=== PATIENT | female | born 1990 | race Caucasian/White ===

== ENCOUNTER 2019-02-05 14:44 | Inpatient (IN) | payer BC ==
[2019-02-05 15:42] VITALS: BMI 26.4
--- NOTE | 2019-02-05 16:19 | OBHP ---
Datetime: 02/05/2019 15:40 Admit Comment, IP Provider: 28 y/o @ 38.4 wks w/NAEEM 02/15/2019 presenting for induction of la bor due to Poor biometry (4th % based on ultrasound performed yesterday). She denied any compl ications in this . She endorses+ FM. She denies vb, fluid loss, ctx. OBGYNhx: hx of termination of PMH: denies Meds: PNV, iron Allergies: topical bacitracin- rash Surghx: nasal polyp remova Sochx: denies etOH, cigarette or elicit drug use ROS: 12 points reviewed and are neg unless otherwise mentioned in HPI PE: Cardio: s1s2 RRR Lungs: cta b/l Abd: gravid, soft, nontender, no rigidity, no guarding Pelvic: 1, 40%, -3 Ext: calves nontender, nonedematous A/P: 28 y/o , clinically stable, @ 38.4 wks w/NAEEM 02/15/2019 presenting for induction of lab or due to biometry @ 4th%. -Admit to unit -Initiate induction protocol -Continue FHR monitoring -Patient seen and examined with Dr. Maria Eugenia Mackey, PGY-1. Attending: Patient was seen and examned with resident and I agree with the above. wally Del Cid Extremities - PN: Normal Abdomen - PN: Normal Lungs - PN: Normal Heart - PN: Normal General - PN: Normal Presentation-Admit: Vertex FHR - Baseline A Provider: 130s Membranes, Provider: Intact Contraction Comments Provider: irregular Gestation - Est Wks by US: 38.5 Pool Provider: Negative Vital Signs Provider: Reviewed; Within Normal Limits IP Indication for Induction: IUGR IP Chief Complaint: Maternal discomfort NICHD Variability Prov Fetus A: Moderate 6-25bpm NICHD Accel Fetus A IP Provider: [id number] FHR Category Provider Fetus A: Category I NICHD Decel Fetus A IP Provider: None Dilatation, Provider: 1 Effacement, Provider: 40 Station, Provider: -3
[2019-02-05 17:01] LABS: BASO % 0.3 % (0.0-2.0); EOS # 0.1 K/uL (0.0-0.7); EOS % 0.6 % (0.0-4.0); HEMOGLOBIN 10.8 g/dL (12.0-16.0); LYMPH % 11.5 % (20.0-40.0); MEAN CELL VOLUME 91.5 fl (81.0-99.0); MEAN CORPUSCULAR HEMOGLOBIN 30.5 pg (27.0-31.0); MEAN CORPUSCULAR HGB CONC 33.3 g/dL (33.0-37.0); MEAN PLATELET VOLUME 9.7 fl (7.2-11.7); MONO # 0.9 K/uL (0.0-0.8); MONO % 10.2 % (0.0-10.0); NEUT # 6.8 K/uL (1.8-7.0); NEUT % 77.4 % (50.0-75.0); NRBC % 0.1 % (0.0-0.0); RBC 3.55 Mil/uL (3.80-5.20); RED CELL DISTRIBUTION WIDTH 14.6 % (11.5-14.5); WHITE BLOOD COUNT 8.8 K/uL (4.8-10.8)
[2019-02-05] MEDS ORDERED: Fentanyl/Bupivacaine HCl 250 ML EPI ONE (19:11)
--- NOTE | 2019-02-05 21:18 | OBPN ---
Datetime: 02/05/2019 15:40 Pool Provider: Negative Membranes, Provider: Intact Contraction Comments Provider: irregular FHR - Baseline A Provider: 130s Gestation - Est Wks by US: 38.5 Presentation-Admit: Vertex IP Progress Note Comment: Patient reports intermittent pelvic cramps. Pain manageable O: afebrile Heart: RRR Chest: CTA B/L Abd: Soft, NT FHR- Category 1 TOCO: Ctx; irregular SVE: Deferred; cervidil placed at 5:50pm Assessment: Intrauterine at 38wks Being induced for IUGR Reassuring Maternal status Plan: Continue to monitor the progress of labor. Vital Signs Provider: Reviewed; Within Normal Limits NICHD Accel Fetus A IP Provider: [id number] FHR Category Provider Fetus A: Category I NICHD Variability Prov Fetus A: Moderate 6-25bpm Dilatation, Provider: 1 Effacement, Provider: 40 Station, Provider: -3 NICHD Decel Fetus A IP Provider: None
--- NOTE | 2019-02-06 09:35 | OBPN ---
Datetime: 02/06/2019 09:27 IP Progress Impression: Non-reassuring heart rate IP Procedures: Sterile Vag Exam IP Progress Plan: Continue present management; Induction; Cervical Ripening FHR - Baseline A Provider: 140s Gestation - Est Wks by US: 38.5 Presentation-Admit: Vertex IP Progress Note Comment: Patient reports feeling some intermittent pelvic cramps. Denies any vaginal bleeding. O : Afebrile Heart: RRR Chest: CTA B/l Abd: Soft, Nt, BS- present FHR- Category 1 Lamoure; irregular Assessment: Intrautrinr at 38w5d IUGR Being induced for IUGR S/P Cervidil for cervical ripening, removed at 5:50am Reassurnig Maternal status. Plan: Will switch on to cytotec for cervicaal ripening. Would consider folley balloon for cervical ripen ing if no response to cytotec. Plan was discussed with the patient and all her questions were answered. NICHD Accel Fetus A IP Provider: [id number] FHR Category Provider Fetus A: Category I NICHD Variability Prov Fetus A: Moderate 6-25bpm Dilatation, Provider: 1 Effacement, Provider: 50 Station, Provider: -3 NICHD Decel Fetus A IP Provider: None
[2019-02-06] MEDS ORDERED: Nalbuphine HCL 10 mg/ml Ampule IM ONE (15:20)
[2019-02-06] MEDS ORDERED: Oxytocin 30 UNIT in NS 500 ml 30 UNITS/500 ML BAG IV ONE ×2 (15:21→18:45)
[2019-02-06] MEDS ORDERED: OXYTOCIN/0.9 % NS 20 UNIT/1,000 ML BAG IV SCH (18:45)
[2019-02-06] MEDS: Lactated Ringer's 1,000 ML IV SCH (18:45)
[2019-02-07] MEDS: Lactated Ringer's 1,000 ML IV SCH ×5 (00:15→06:45)
[2019-02-07] MEDS ORDERED: Fentanyl/Bupivacaine HCl 250 ML EPI ONE (00:42)
--- NOTE | 2019-02-07 00:42 | OBPN ---
Datetime: 02/07/2019 00:33 IP Procedures Other: Removal of cook cervical balloon IP Progress Impression Other: Maternal discomfort IP Progress Impression: Normal progression of labor; Reassuring heart rate IP Informed Consent Obtain: Vaginal Delivery IP Procedures: Sterile Vag Exam IP Progress Plan: Continue present management; Anesthesia consult; Anticipate Vaginal Delivery Membranes, Provider: Intact Contraction Comments Provider: Q 2-3 FHR - Baseline A Provider: 130 Gestation - Est Wks by US: 38.6 Presentation-Admit: Vertex IP Progress Note Comment: Patient reported that she was having some painful pelvic pressure Denies any vaginal bleeding or leakage of fluid FHR- category 1 TOCO; Q 2-3 SVE: Balloon out of the cervix, Balloons deflated and removed Cx: /-3 Assessment: IUP at 38weeks IUGR being induced S/p cervidil, cytotec and Cook balloon for cervical ripening Reassuring maternal status Plan: Continue with Pitocin for augmentation of labor May have epidural Monitor closely the progress of labor. Vital Signs Provider: Reviewed NICHD Accel Fetus A IP Provider: [id number] FHR Category Provider Fetus A: Category I NICHD Variability Prov Fetus A: Moderate 6-25bpm Dilatation, Provider: 4 Effacement, Provider: 50 Station, Provider: -3 NICHD Decel Fetus A IP Provider: None
--- NOTE | 2019-02-07 07:20 | OBPN ---
Datetime: 02/07/2019 07:03 IP Progress Impression: Rupture of membranes IP Procedures: Sterile Vag Exam IP Progress Plan: Continue present management Membranes, Provider: Ruptured Amniotic Fluid Color, Provider: Clear Contraction Comments Provider: Q 4-5 FHR - Baseline A Provider: 130 Gestation - Est Wks by US: 38.6 Presentation-Admit: Vertex IP Progress Note Comment: Patient is s/p epidural and is comfortable. FHR at 130s with episodes of early decelerations and vaiables TOCO: Q 4-5 SVE: 5-6/90/-3, Vertex Assessment: IUP at 38weeks in labor Category 2 tracing Plan: Will stop Pitocin for now Resuscitation with positioning Monitor the progress of labor. Vital Signs Provider: Reviewed NICHD Accel Fetus A IP Provider: [id number] FHR Category Provider Fetus A: Category II NICHD Variability Prov Fetus A: Moderate 6-25bpm Dilatation, Provider: 5-6 Effacement, Provider: 90 Station, Provider: -3 NICHD Decel Fetus A IP Provider: Early; Variable
[2019-02-07] MEDS: Lactated Ringer's 1,000 ML IV ONE ×2 (09:15→11:30)
--- NOTE | 2019-02-07 09:40 | OBPN ---
Datetime: 02/06/2019 20:25 IP Progress Impression: Reactive non-stress test IP Procedures: Sterile Vag Exam IP Progress Plan: Continue present management; Augmentation FHR - Baseline A Provider: 120 IP Progress Note Comment: Patient reports feeling pelvic contractions. She is status post COOk balloon placement with pitocin for cervical ripening. Plan: Will continue to monitor the progress of labor. Vital Signs Provider: Reviewed; Within Normal Limits NICHD Accel Fetus A IP Provider: [id number] FHR Category Provider Fetus A: Category I NICHD Decel Fetus A IP Provider: None
--- NOTE | 2019-02-07 09:40 | OBADHP ---
Datetime: 02/05/2019 15:40 Admit Comment, IP Provider: 28 y/o @ 38.4 wks w/NAEEM 02/15/2019 presenting for induction of la bor due to Poor biometry (4th % based on ultrasound performed yesterday). She denied any compl ications in this . She endorses+ FM. She denies vb, fluid loss, ctx. OBGYNhx: hx of termination of PMH: denies Meds: PNV, iron Allergies: topical bacitracin- rash Surghx: nasal polyp remova Sochx: denies etOH, cigarette or elicit drug use ROS: 12 points reviewed and are neg unless otherwise mentioned in HPI PE: Cardio: s1s2 RRR Lungs: cta b/l Abd: gravid, soft, nontender, no rigidity, no guarding Pelvic: 1, 40%, -3 Ext: calves nontender, nonedematous A/P: 28 y/o , clinically stable, @ 38.4 wks w/NAEEM 02/15/2019 presenting for induction of lab or due to biometry @ 4th%. -Admit to unit -Initiate induction protocol -Continue FHR monitoring -Patient seen and examined with Dr. Maria Eugenia Mackey, PGY-1. Attending: Patient was seen and examned with resident and I agree with the above. wally Del Cid Extremities - PN: Normal Abdomen - PN: Normal Lungs - PN: Normal Heart - PN: Normal General - PN: Normal Presentation-Admit: Vertex FHR - Baseline A Provider: 130s Membranes, Provider: Intact Contraction Comments Provider: irregular Gestation - Est Wks by US: 38.5 Pool Provider: Negative Vital Signs Provider: Reviewed; Within Normal Limits IP Chief Complaint: Maternal discomfort NICHD Variability Prov Fetus A: Moderate 6-25bpm NICHD Accel Fetus A IP Provider: [id number] FHR Category Provider Fetus A: Category I NICHD Decel Fetus A IP Provider: None Dilatation, Provider: 1 Effacement, Provider: 40 Station, Provider: -3 IP Adm Impression: Term, intrauterine ; No Active Labor IP Admit Plan: Admit to unit; Initiate labor induction protocol
[2019-02-07] MEDS ORDERED: Lactated Ringer's 1,000 ML IV ONE ×2 (10:00→10:15)
[2019-02-07] MEDS ORDERED: Oxytocin 30 UNIT in NS 500 ml 30 UNITS/500 ML BAG IV ONE ×3 (10:47→11:30)
[2019-02-07] MEDS ORDERED: ceFAZolin 1 GM in Sodium Chloride 0.9% 100 ML IVPB ONE (11:19)
[2019-02-07] MEDS ORDERED: Lactated Ringer's 1,000 ML IV SCH (11:34)
--- NOTE | 2019-02-07 12:14 | OBPN ---
Datetime: 02/07/2019 11:15 IP Progress Impression: Non-reassuring heart rate IP Informed Consent Obtain: Section Delivery; Risks, Benefits and Alternatives Discussed IP Procedures: Sterile Vag Exam IP Progress Plan: Induction Membranes, Provider: Ruptured Amniotic Fluid Color, Provider: Clear FHR - Baseline A Provider: 120's IP Progress Note Comment: 28 yo at 38+6 wks for induction for growth restriction Recurrent variable decelerations, last deceleration lasting about 2 minutes Pt has been consented for section Will start pitocin to see if pt can progress to complete Will continue the amnioinfusion and watch the heart rate closely FHR Category Provider Fetus A: Category II NICHD Variability Prov Fetus A: Moderate 6-25bpm Dilatation, Provider: 8 Station, Provider: -1 NICHD Decel Fetus A IP Provider: Variable
[2019-02-07] MEDS ORDERED: Bupivacaine HCl 0.5% PF (30 ml) Inj ONE (12:58)
[2019-02-07] MEDS ORDERED: OXYTOCIN/0.9 % NS 20 UNIT/1,000 ML BAG IV ONE (14:41)
--- NOTE | 2019-02-07 16:05 | OBDS ---
MATERNAL INFORMATION Provider Comments: Pt progressed to complete and pushed to deliver a viable male infant at 1521 thro ugh clear fluid w/ terminal meconium. Loose nuchal cord easily reduced. Apgars 9 and 9. Infant plac ed on mother's abdomen. Delayed cord clamping was performed. Cord doubly clamped and FOB cut the co rd. Placenta delivered spontaneously intact w/ a 3vc at 1526. Perineum and vagina intact. Pt and javy baltazar tolerated the procedure well. QBL: 100mL LABOR SUMMARY EDC: 02/15/2019 00:00 No. Babies in Womb: 1 LABOR INFORMATION Onset of Labor: not in labor. pt admitted to labor and delivery for IOL IUGR Cervical Ripening Agents: Ramos Balloon Other Ripening Agents: cervical ripening balloon removed and intact by Dr Maria Eugenia Banks B Beta Strep: Negative (Annotations: result date: 01/23/2019) MEMBRANES Membranes Rupture Method: Spontaneous Rupture of Membranes: 02/07/2019 03:53 Amniotic Fluid Color: Clear Amniotic Fluid Amount: Small Amniotic Fluid Odor: Normal
[2019-02-07] MEDS ORDERED: Oxycodone/Acetaminophen 5/325 mg Tab PO PRN ×2 (16:12→21:03)
[2019-02-07] MEDS ORDERED: Benzocaine/Menthol SPRAY TOP PRN (16:12)
[2019-02-07] MEDS ORDERED: Sodium Chloride 3% for Inhalation 4 ML VIAL.NEB IH SCH (19:15)
--- NOTE | 2019-02-07 19:58 | CP.PCM.CON ---
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 Pt complains of dyspnea, post- nasal drip and non-productive cough that began 2 days ago. Pt was admitted to L&D for induction of labor 2 days ago. After vaginal delivery 3 hours ago, pt reported aggravatation of SOB and cough, O2 sat measured and was within 88-92% range. Pt also c/o mild sternal chest pain that is reproducible on palpation and worse with inspiration; she also reports feeling a lot of mucus on her throat now. Pt reports a long Hx of sinusitis and nasal polyps, she had 2 episodes of . 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 Pt denies ill contacts or recent travel. Pt denies nasal congestion, wheezing, palpitations, cyanosis or rash. Allergy: Bacitracin Meds: Pre- Vitamins -PMHx: Recurrent sinusitis. -PSHx: nasal polyps resection -FHx: NC -SHx: Denies tobacco, alcohol or rec drugs. Vital signs by bedside: temp 99.6 F, HR 87, BP 126/67, O2 Sat 95%. Review of Systems - Constitutional Constitutional: Chills. absent: Anorexia, Fever - EENT Eyes: absent: Change in Vision Ears: absent: Decreased Hearing Nose/Mouth/Throat: Post Nasal Drip. absent: Nasal Congestion, Nasal Discharge, Sore Throat, Neck Pain - Cardiovascular Cardiovascular: Chest Pain, Dyspnea. absent: Lightheadedness, Orthopnea, Pedal Edema - Respiratory Respiratory: Cough, Dyspnea, Pain on Inspiration. absent: Hemoptysis, Wheezing - Gastrointestinal Gastrointestinal: absent: Abdominal Pain, Bloating, Constipation, Diarrhea, Dyspepsia, Dysphagia, Vomiting - Genitourinary Genitourinary: absent: Dysuria, Flank Pain, Hematuria - Musculoskeletal Musculoskeletal: absent: Back Pain, Myalgias, Numbness Past Patient History - Past Social History Smoking Status: Never Smoked Meds Allergies/Adverse Reactions: Allergies Allergy/AdvReac Type Severity Reaction Status Date / Time bacitracin Allergy RASH Verified 02/05/19 15:42 - Medications Medications: Current Medications Benzocaine/Menthol (Dermoplast) 1 sprays TOP Q6 PRN PRN Reason: Perineal Discomfort Docusate Sodium (Colace) 100 mg PO BID [facility] Guaifenesin (Mucinex La) 600 mg PO Q12 [facility] Fentanyl/Bupivacaine HCl (Marcaine 0.125% With Fentanyl 2 Mcg/Ml Premix) 250 mls @ 12 mls/hr EPI .[id number] ONE Stop: 02/07/19 21:31 Last Admin: 02/07/19 01:22 Dose: 12 mls/hr Lactated Ringer's (Lactated Ringer's) 1,000 mls @ 999 mls/hr IV .Q1H1M ONE Last Admin: 02/07/19 11:30 Dose: 999 mls/hr Lactated Ringer's (Lactated Ringer's) 1,000 mls @ 250 mls/hr IV .Q4H [facility] Last Admin: 02/07/19 12:29 Dose: 250 mls/hr OXYTOCIN/0.9 % NS (Oxytocin 20 Unit/1000 Ml-Ns) 20 unit in 1,000 mls @ 125 mls/hr IV .Q8H ONE; Protocol Stop: 02/07/19 22:40 Last Admin: 02/07/19 16:11 Dose: 125 mls/hr Ibuprofen (Motrin Tab) 600 mg PO Q6 PRN PRN Reason: Pain, Mild (1-3) Multivitamins/Minerals (Therapeutic-M Tab) 1 tab PO DAILY [facility] Oxycodone/Acetaminophen (Percocet 5/325 Mg Tab) 1 tab PO Q4 PRN PRN Reason: Pain, moderate (4-7) Stop: 02/10/19 16:13 Sennosides (Senokot Tab) 17.2 mg PO HS [facility] Physical Exam - Constitutional Appears: Well, No Acute Distress - Head Exam Head Exam: ATRAUMATIC, NORMAL INSPECTION - Eye Exam Eye Exam: EOMI, Normal appearance - ENT Exam ENT Exam: Mucous Membranes Dry, Normal Oropharynx Additional comments: Normal posterior oropharynx, no erythema, no exudates on tonsils, presence of post-nasal drip. - Neck Exam Neck exam: Positive for: Full Rom, Normal Inspection. Negative for: Lymphadenopathy, Meningismus - Respiratory Exam Respiratory Exam: Decreased Breath Sounds (on bilateral lower bases, R > L. ), NORMAL BREATHING PATTERN. absent: Wheezes, Respiratory Distress - Cardiovascular Exam Cardiovascular Exam: REGULAR RHYTHM, +S1, +S2 - GI/Abdominal Exam GI & Abdominal Exam: Soft. absent: Tenderness Additional comments: Fundus of uterus at level of umbilicus - Extremities Exam Extremities exam: Positive for: full ROM. Negative for: calf tenderness, pedal edema, tenderness - Neurological Exam Neurological exam: Alert, Oriented x3 Results - Labs Result Diagrams: 02/05/19 16:30 Assessment & Plan - Assessment and Plan (Free Text) Assessment: 28 y/o F on post- day 0 with a PMHx of recurrent sinusitis was consulted due to an episode of O2 desaturation, SOB and chest pain. PLAN: >Dyspnea/Oxygen desaturation --Possibly mucous plug vs URI vs pneumonia vs PE vs fluid overload from IV fl uids --Afebrile, no leukocytosis, O2 saturating at 95-97% on NC at 2 L/min. --Chest X-ray ordered --ABG STAT ordered. --Pro-calcitonin, Pro-BNP, D-dimer ordered. --PO Mucinex Q12H ordered --PO Lasix 40mg ordered --Stop IV fluids --Continue with O2 by NC at 2L/min. --F/U labs, O2 saturation --Considering CTA chest if low PO2 and desaturation. >Chest pain --Acute --likely musculoskeletal --EKG ordered to r/o ACS >Post --Continue management as per COLLECTIONS AND ARCHIVES DIRECTOR team. - Date & Time Date: 02/07/19 Time: 20:00 <Daniel Gupta D - Last Filed: 02/08/19 09:50> Meds - Medications Medications: Current Medications Albuterol/Ipratropium (Duoneb 3 Mg/0.5 Mg (3 Ml) Ud) 3 ml INH RQ4 PRN PRN Reason: Shortness of Breath Benzocaine/Menthol (Dermoplast) 1 sprays TOP Q6 PRN PRN Reason: Perineal Discomfort Last Admin: 02/08/19 09:03 Dose: 1 sprays Docusate Sodium (Colace) 100 mg PO BID [facility] Last Admin: 02/08/19 08:47 Dose: 100 mg Guaifenesin (Mucinex La) 600 mg PO Q12 [facility] Last Admin: 02/07/19 22:10 Dose: 600 mg Azithromycin 500 mg/ Sodium (Chloride) 250 mls @ 250 mls/hr IVPB DAILY JONA; Protocol Ceftriaxone Sodium 1 gm/ (Sodium Chloride) 100 mls @ 100 mls/hr IVPB DAILY JONA; Protocol Last Admin: 02/08/19 08:21 Dose: 100 mls/hr Ibuprofen (Motrin Tab) 600 mg PO Q6 PRN PRN Reason: Pain, Mild (1-3) Last Admin: 02/08/19 08:49 Dose: 600 mg Multivitamins/Minerals (Therapeutic-M Tab) 1 tab PO DAILY JONA Last Admin: 02/08/19 08:48 Dose: 1 tab Oxycodone/Acetaminophen (Percocet 5/325 Mg Tab) 1 tab PO Q4 PRN PRN Reason: Pain, moderate (4-7) Stop: 02/10/19 16:13 Potassium Chloride (K-Dur 20 Meq Er Tab) 40 meq PO ONCE ONE Stop: 02/08/19 08:43 Sennosides (Senokot Tab) 17.2 mg PO HS [facility] Last Admin: 02/07/19 23:04 Dose: 17.2 mg Results - Vital Signs Recent Vital Signs: Last Vital Signs Temp Pulse 97 H 02/07/19 21:24 Resp BP 125/71 02/07/19 22:09 Pulse Ox - Labs Result Diagrams: 02/08/19 05:15 02/08/19 05:15 Labs: Laboratory Results - last 24 hr 02/07/19 02/07/19 02/07/19 20:50 22:00 22:20 WBC RBC Hgb Hct MCV MCH MCHC RDW Plt Count MPV Neut % (Auto) Lymph % (Auto) [place] % (Auto) Eos % (Auto) Baso % (Auto) Neut # (Auto) Lymph # (Auto) [place] # (Auto) Eos # (Auto) Baso # (Auto) D-Dimer, Quantitative 726 H pCO2 35 pO2 66 L HCO3 26.9 ABG pH 7.48 H ABG Total CO2 27.2 ABG O2 Saturation 95.0 ABG O2 Content 15.2 ABG Base Excess 2.7 ABG Hemoglobin 11.7 ABG Carboxyhemoglobin 1.9 H POC ABG HHb (Measured) 4.8 ABG Methemoglobin 1.5 ABG O2 Capacity 16.0 Luis Alberto Test Yes A-a O2 Difference 40.0 Hgb O2 Saturation 91.9 L FiO2 21.0 Sodium 136 Potassium 3.3 L Chloride 102 Carbon Dioxide 26 Anion Gap 11 BUN 5 L Creatinine 0.4 L Est GFR ( Amer) > 60 Est GFR (Non-Af Amer) > 60 Random Glucose 138 H Calcium 8.9 NT-Pro-B Natriuret Pep 950 H 02/08/19 02/08/19 05:15 05:15 WBC 17.6 H D RBC 3.27 L Hgb 10.0 L Hct 29.6 L MCV 90.6 MCH 30.5 MCHC 33.7 RDW 14.9 H Plt Count 173 MPV 10.0 Neut % (Auto) 80.9 H Lymph % (Auto) 10.2 L [place] % (Auto) 8.5 Eos % (Auto) 0.2 Baso % (Auto) 0.2 Neut # (Auto) 14.2 H Lymph # (Auto) 1.8 [place] # (Auto) 1.5 H Eos # (Auto) 0.0 Baso # (Auto) 0.0 D-Dimer, Quantitative pCO2 pO2 HCO3 ABG pH ABG Total CO2 ABG O2 Saturation ABG O2 Content ABG Base Excess ABG Hemoglobin ABG Carboxyhemoglobin POC ABG HHb (Measured) ABG Methemoglobin ABG O2 Capacity Luis Alberto Test A-a O2 Difference Hgb O2 Saturation FiO2 Sodium 138 Potassium 3.0 L Chloride 100 Carbon Dioxide 27 Anion Gap 14 BUN 4 L Creatinine 0.4 L Est GFR ( Amer) > 60 Est GFR (Non-Af Amer) > 60 Random Glucose 77 Calcium 8.8 NT-Pro-B Natriuret Pep Attending/Attestation - Attestation I have personally seen and examined this patient.: Yes I have fully participated in the care of the patient.: Yes I have reviewed all pertinent clinical information: Yes Notes (Text): 02/08/19 09:50 Patient seen and examined with resident. Case discussed and agreed with assessment.
[2019-02-07 20:55] LABS: ABG ALLEN TEST YES; ARTERIAL BLOOD GAS HCO3 26.9 mmol/L (21-28); ARTERIAL BLOOD GAS HEMOGLOBIN 11.7 g/dL (11.7-17.4); ARTERIAL BLOOD GAS O2 CONTENT 15.2 ML/dL (15-23); ARTERIAL BLOOD GAS PCO2 35 mm/Hg (35-45); ARTERIAL BLOOD GAS PH 7.48 (7.35-7.45); ARTERIAL BLOOD GAS PO2 66 mm/Hg (80-100); ARTERIAL BLOOD GAS TCO2 27.2 mmol/L (22-28)
[2019-02-07] MEDS ORDERED: guaiFENesin 600 mg ER Tab PO SCH (21:00)
[2019-02-07] MEDS: Sodium Chloride 3% for Inhalation 4 ML VIAL.NEB IH SCH (21:20)
[2019-02-07] MEDS: guaiFENesin 600 mg ER Tab PO SCH (22:10)
[2019-02-07 22:56] LABS: BLOOD UREA NITROGEN 5 mg/dl (7-17); CALCIUM 8.9 mg/dL (8.4-10.2); GFR NON-AFRICAN AMERICAN > 60
[2019-02-07] MEDS: Benzocaine/Menthol SPRAY TOP PRN (23:04)
[2019-02-07 23:06] LABS: B-TYPE NATRIURETIC PEPTIDE 950 pg/ml (0-450)
[2019-02-07] MEDS ORDERED: Potassium Chloride 20 mEq ER Tab PO ONE (23:28)
[2019-02-08] MEDS ORDERED: Iodixanol 320 MG/ML 100 ML BOTTLE IV ONE (00:34)
[2019-02-08] MEDS ORDERED: Sodium Chloride 0.9% 50 ML IV ONE (00:34)
[2019-02-08] MEDS ORDERED: Albuterol-Ipratrop 3 mg / 0.5 (3 ml) UD INH PRN (04:29)
[2019-02-08] MEDS: Sodium Chloride 3% for Inhalation 4 ML VIAL.NEB IH SCH ×4 (06:15→23:19)
[2019-02-08 06:43] LABS: BASO % 0.2 % (0.0-2.0); EOS % 0.2 % (0.0-4.0); LYMPH # 1.8 K/uL (1.0-4.3); LYMPH % 10.2 % (20.0-40.0); MEAN CELL VOLUME 90.6 fl (81.0-99.0); MEAN CORPUSCULAR HEMOGLOBIN 30.5 pg (27.0-31.0); MEAN CORPUSCULAR HGB CONC 33.7 g/dL (33.0-37.0); MONO # 1.5 K/uL (0.0-0.8); MONO % 8.5 % (0.0-10.0); NEUT # 14.2 K/uL (1.8-7.0); NEUT % 80.9 % (50.0-75.0); RBC 3.27 Mil/uL (3.80-5.20); RED CELL DISTRIBUTION WIDTH 14.9 % (11.5-14.5)
[2019-02-08 06:57] LABS: BLOOD UREA NITROGEN 4 mg/dl (7-17); CALCIUM 8.8 mg/dL (8.4-10.2); GFR NON-AFRICAN AMERICAN > 60
[2019-02-08 06:59] LABS: WHITE BLOOD COUNT 17.6 K/uL (4.8-10.8)
--- NOTE | 2019-02-08 08:27 | CARD ---
APPROVED REPORT Date of service: 02/07/2019 EKG Measurement Heart [id number] <Conclusion> Normal sinus rhythm Normal Electrocardiogram
[2019-02-08] MEDS: Multivitamin With Minerals Tab PO SCH (08:48)
[2019-02-08] MEDS ORDERED: Multivitamin With Minerals Tab PO SCH (09:00)
[2019-02-08] MEDS ORDERED: guaiFENesin 600 mg ER Tab PO SCH (09:00)
--- NOTE | 2019-02-08 09:01 | RAD ---
Date of service: 02/07/2019 HISTORY: SOB, desaturation COMPARISON: Chest radiographs 04/19/2009. FINDINGS: LUNGS: Hazy infiltrate seen the mid to inferior left lung zone suspicious for early pneumonia. Clinically correlate further. Right chest appears clear once again. PLEURA: No significant pleural effusion identified, no pneumothorax apparent. CARDIOVASCULAR: No aortic atherosclerotic calcification present. Normal cardiac size. No pulmonary vascular congestion. OSSEOUS STRUCTURES: No significant abnormalities. VISUALIZED UPPER ABDOMEN: Normal. OTHER FINDINGS: None. IMPRESSION: No infiltrate suspected left lower lobe and possibly left perihilar region. Remainder the examination is unremarkable and stable.
[2019-02-08] MEDS: Benzocaine/Menthol SPRAY TOP PRN (09:03)
--- NOTE | 2019-02-08 09:14 | CP.PCM.PN ---
<Pratik Shaikh - Last Filed: 02/08/19 11:47> Subjective - Date & Time of Evaluation Date of Evaluation: 02/08/19 Time of Evaluation: 08:00 - Subjective Subjective: Patient is seen and examined at bedside today. No acute event overnight. Patient report having dry cough and chest pain upon deep inspiration, but otherwise she feel fine, she is concerned about not able to feed baby but otherwise she denies any fever, chills, abdominal pain, diarrhea or constipation. Objective - Vital Signs/Intake and Output Vital Signs (last 24 hours): Temp Pulse Resp BP Pulse Ox 97 H 125/71 02/07/19 21:24 02/07/19 22:09 - Medications Medications: Current Medications Albuterol/Ipratropium (Duoneb 3 Mg/0.5 Mg (3 Ml) Ud) 3 ml INH RQ4 PRN PRN Reason: Shortness of Breath Benzocaine/Menthol (Dermoplast) 1 sprays TOP Q6 PRN PRN Reason: Perineal Discomfort Last Admin: 02/08/19 09:03 Dose: 1 sprays Docusate Sodium (Colace) 100 mg PO BID [facility] Last Admin: 02/08/19 08:47 Dose: 100 mg Guaifenesin (Mucinex La) 600 mg PO Q12 [facility] Last Admin: 02/07/19 22:10 Dose: 600 mg Azithromycin 500 mg/ Sodium (Chloride) 250 mls @ 250 mls/hr IVPB DAILY [facility]; Protocol Ceftriaxone Sodium 1 gm/ (Sodium Chloride) 100 mls @ 100 mls/hr IVPB DAILY [facility]; Protocol Last Admin: 02/08/19 08:21 Dose: 100 mls/hr Ibuprofen (Motrin Tab) 600 mg PO Q6 PRN PRN Reason: Pain, Mild (1-3) Last Admin: 02/08/19 08:49 Dose: 600 mg Multivitamins/Minerals (Therapeutic-M Tab) 1 tab PO DAILY [facility] Last Admin: 02/08/19 08:48 Dose: 1 tab Oxycodone/Acetaminophen (Percocet 5/325 Mg Tab) 1 tab PO Q4 PRN PRN Reason: Pain, moderate (4-7) Stop: 02/10/19 16:13 Potassium Chloride (K-Dur 20 Meq Er Tab) 40 meq PO ONCE ONE Stop: 02/08/19 08:43 Sennosides (Senokot Tab) 17.2 mg PO HS [facility] Last Admin: 02/07/19 23:04 Dose: 17.2 mg - Labs Labs: 02/08/19 05:15 02/08/19 05:15 - Constitutional Appears: Well, Non-toxic, No Acute Distress - Head Exam Head Exam: ATRAUMATIC, NORMAL INSPECTION, NORMOCEPHALIC - Eye Exam Eye Exam: EOMI, Normal appearance, PERRL Pupil Exam: NORMAL ACCOMODATION, PERRL - ENT Exam ENT Exam: Mucous Membranes Moist, Normal Exam - Neck Exam Neck Exam: Full ROM, Normal Inspection - Respiratory Exam Respiratory Exam: Clear to Ausculation Bilateral, NORMAL BREATHING PATTERN - Cardiovascular Exam Cardiovascular Exam: REGULAR RHYTHM, +S1, +S2 - GI/Abdominal Exam GI & Abdominal Exam: Soft, Normal Bowel Sounds - Extremities Exam Extremities Exam: Full ROM, Normal Capillary Refill - Back Exam Back Exam: NORMAL INSPECTION - Neurological Exam Neurological Exam: Alert, Awake, Normal Gait, Oriented x3 - Psychiatric Exam Psychiatric exam: Normal Affect, Normal Mood - Skin Skin Exam: Dry, Intact, Normal Color, Warm Assessment and Plan - Assessment and Plan (Free Text) Assessment: 28 yo female on Post- day 1 with PMHx of Recurrent Sinusitis was consulted due to an episode of 02 desaturation, sob, and chest pain. PLAN: -Dyspnea/Oxygen desaturation -- Mucous plug vs URI vs pneumonia vs PE vs fluid overload from IV fluids --Afebrile, O2 saturating at 95-97% on NC at 2 L/min. --PE: clear lung un labored. --WBC 17.5 today most likely due to recent delivery --ABG WNL -- Pro-BNP 950H -- D-Dimer 726H --Xray no acute disease noted --CT Scan Possible pneumonia ( preliminary result) --PO Mucinex Q12H ordered --PO Lasix 40mg once --IV fluids discontinued --Continue with O2 by NC at 2L/min. -- CT scan follow up final reading -- Start Azithromycin Day 1 -- Start Rocephin Day 1 -Chest pain ---- Possible MSK vs cough related pain --Improved, pain is upon deep inspiration only --EKG no ST/T changes >Post --Continue management as per [facility] team. <GuptaDaniel ross D - Last Filed: 02/08/19 20:11> Objective - Vital Signs/Intake and Output Vital Signs (last 24 hours): Temp Pulse Resp BP Pulse Ox 97 H 125/71 02/07/19 21:24 02/07/19 22:09 - Medications Medications: Current Medications Albuterol/Ipratropium (Duoneb 3 Mg/0.5 Mg (3 Ml) Ud) 3 ml INH RQ4 PRN PRN Reason: Shortness of Breath Benzocaine/Menthol (Dermoplast) 1 sprays TOP Q6 PRN PRN Reason: Perineal Discomfort Last Admin: 02/08/19 09:03 Dose: 1 sprays Docusate Sodium (Colace) 100 mg PO BID [facility] Last Admin: 02/08/19 17:30 Dose: 100 mg Guaifenesin (Mucinex La) 600 mg PO Q12 [facility] Last Admin: 02/08/19 15:08 Dose: 600 mg Azithromycin 500 mg/ Sodium (Chloride) 250 mls @ 250 mls/hr IVPB DAILY [facility]; Protocol Last Admin: 02/08/19 09:53 Dose: 250 mls/hr Ceftriaxone Sodium 1 gm/ (Sodium Chloride) 100 mls @ 100 mls/hr IVPB DAILY [facility]; Protocol Last Admin: 02/08/19 08:21 Dose: 100 mls/hr Ibuprofen (Motrin Tab) 600 mg PO Q6 PRN PRN Reason: Pain, Mild (1-3) Last Admin: 02/08/19 17:30 Dose: 600 mg Multivitamins/Minerals (Therapeutic-M Tab) 1 tab PO DAILY [facility] Last Admin: 02/08/19 08:48 Dose: 1 tab Oxycodone/Acetaminophen (Percocet 5/325 Mg Tab) 1 tab PO Q4 PRN PRN Reason: Pain, moderate (4-7) Stop: 02/10/19 16:13 Sennosides (Senokot Tab) 17.2 mg PO HS [facility] Last Admin: 02/07/19 23:04 Dose: 17.2 mg - Labs Labs: 02/08/19 05:15 02/08/19 05:15 Attending/Attestation - Attestation I have personally seen and examined this patient.: Yes I have fully participated in the care of the patient.: Yes I have reviewed all pertinent clinical information, including history, physical exam and plan: Yes Notes (Text): 02/08/19 20:09 Patient seen and examined with resident. Case discussed and agreed with assessment and plan of management. CT scan revealed bilateral infiltrates. Continue Rocephin and Zithromax for pneumonia probably secondary to aspiration. Repeat CBC in am
[2019-02-08] MEDS: Azithromycin 500 MG in Sodium Chloride 0.9% 250 ML IVPB SCH (09:53)
--- NOTE | 2019-02-08 12:27 | CT ---
Date of service: 02/08/2019 CTA chest PE protocol Indication: Desaturation. Rule out PE. Technique: Contiguous axial images were obtained through the chest with intravenous contrast enhancement. Sagittal and coronal reconstructions were generated and reviewed. This CT exam was performed using 1 or more of the following dose reduction techniques: Automated exposure control, adjustment of the MAA and/or kV according to patient size, and/or use of iterative reconstruction technique. IV contrast: 90 mL Visipaque 320 IV Radiation dose (DLP): 225.99 MGy-cm. Comparison: Chest x-ray performed 02/07/19 Findings: Visualized portions of the inferior thyroid gland appear unremarkable. The mediastinal and hilar vascular structures appear within normal limits. The heart appears within normal limits of size. There is suboptimal opacification of the pulmonary arteries limiting evaluation for pulmonary embolus. Given this limitation, there are no visible intraluminal filling defects within the central pulmonary arteries to suggest central pulmonary embolism. Ground-glass and nodular infiltrates within the lingula, left lower lobe, and right middle lobe. Small bilateral pleural effusions. No pneumothorax. Limited visualized portions of the upper abdomen appear grossly unremarkable. No acute osseous abnormality is detected. Impression: There is suboptimal opacification of the pulmonary arteries limiting evaluation for pulmonary embolus. Given this limitation, there are no visible intraluminal filling defects within the central pulmonary arteries to suggest central pulmonary embolism. Ground-glass and nodular infiltrates involving the lingula, left lower lobe, and right middle lobe. Small bilateral pleural effusions. Preliminary impression was provided by [facility].
[2019-02-08] MEDS: Potassium Chloride 20 mEq ER Tab PO ONE ×2 (15:08→15:09)
[2019-02-08] MEDS: guaiFENesin 600 mg ER Tab PO SCH ×2 (15:08→21:20)
[2019-02-09 07:06] LABS: HEMOGLOBIN 9.7 g/dL (12.0-16.0); MEAN CELL VOLUME 92.2 fl (81.0-99.0); MEAN CORPUSCULAR HEMOGLOBIN 30.9 pg (27.0-31.0); MEAN CORPUSCULAR HGB CONC 33.5 g/dL (33.0-37.0); RBC 3.15 Mil/uL (3.80-5.20); WHITE BLOOD COUNT 10.6 K/uL (4.8-10.8)
[2019-02-09 07:21] LABS: BLOOD UREA NITROGEN 8 mg/dl (7-17); CALCIUM 8.9 mg/dL (8.4-10.2); GFR NON-AFRICAN AMERICAN > 60
[2019-02-09] MEDS ORDERED: Potassium Chloride 20 mEq ER Tab PO ONE (08:19)
[2019-02-09] MEDS: Multivitamin With Minerals Tab PO SCH (08:47)
--- NOTE | 2019-02-09 10:55 | CP.PCM.PN ---
<Pratik Shaikh - Last Filed: 02/09/19 12:28> Subjective - Date & Time of Evaluation Date of Evaluation: 02/09/19 Time of Evaluation: 07:00 - Subjective Subjective: Patient is seen and examined at bedside today. No acute event overnight. Patient report feeling better, she have no concern, cough still present but improved, sh e denies any fever, chills, abdominal pain, diarrhea or constipation. Objective - Vital Signs/Intake and Output Vital Signs (last 24 hours): Temp Pulse Resp BP Pulse Ox 97 H 125/71 02/07/19 21:24 02/07/19 22:09 - Medications Medications: Current Medications Albuterol/Ipratropium (Duoneb 3 Mg/0.5 Mg (3 Ml) Ud) 3 ml INH RQ4 PRN PRN Reason: Shortness of Breath Benzocaine/Menthol (Dermoplast) 1 sprays TOP Q6 PRN PRN Reason: Perineal Discomfort Last Admin: 02/08/19 09:03 Dose: 1 sprays Docusate Sodium (Colace) 100 mg PO BID [facility] Last Admin: 02/09/19 08:47 Dose: 100 mg Guaifenesin (Mucinex La) 600 mg PO Q12 [facility] Last Admin: 02/08/19 21:20 Dose: 600 mg Azithromycin 500 mg/ Sodium (Chloride) 250 mls @ 250 mls/hr IVPB DAILY [facility]; Protocol Last Admin: 02/08/19 09:53 Dose: 250 mls/hr Ceftriaxone Sodium 1 gm/ (Sodium Chloride) 100 mls @ 100 mls/hr IVPB DAILY [facility]; Protocol Last Admin: 02/08/19 08:21 Dose: 100 mls/hr Ibuprofen (Motrin Tab) 600 mg PO Q6 PRN PRN Reason: Pain, Mild (1-3) Last Admin: 02/08/19 23:08 Dose: 600 mg Multivitamins/Minerals (Therapeutic-M Tab) 1 tab PO DAILY [facility] Last Admin: 02/09/19 08:47 Dose: 1 tab Oxycodone/Acetaminophen (Percocet 5/325 Mg Tab) 1 tab PO Q4 PRN PRN Reason: Pain, moderate (4-7) Stop: 02/10/19 16:13 Sennosides (Senokot Tab) 17.2 mg PO HS [facility] Last Admin: 02/08/19 21:26 Dose: Not Given - Labs Labs: 02/09/19 05:20 02/09/19 05:20 Assessment and Plan - Assessment and Plan (Free Text) Assessment: 28 yo female on Post- day 2 with PMHx of Recurrent Sinusitis was consulted due to an episode of 02 desaturation, sob, and chest pain. PLAN: -Dyspnea/Oxygen desaturation Due to atypical pneumonia --Afebrile, O2 100% room air --PE: clear lung un labored. --WBC 17.5 -> regulated WNL --ABG WNL -- Pro-BNP 950H -- D-Dimer 726H --Xray no acute disease noted --CT Scan Possible pneumonia With pleural effusion possible due to IV hydration -Chest pain Resolved Final recommendation Patient is stable from medical team Patient can be discharged with azithromycin 500mg qd for 7 day, and Omnicef 300mg Q12h 7 day. Thank you for consult, Re-consult if needed. >Post --Continue management as per [facility] team. <Marily Cabrera - Last Filed: 02/09/19 18:44> Objective - Vital Signs/Intake and Output Vital Signs (last 24 hours): Temp Pulse Resp BP Pulse Ox 97 H 125/71 02/07/19 21:24 02/07/19 22:09 - Medications Medications: Current Medications Albuterol/Ipratropium (Duoneb 3 Mg/0.5 Mg (3 Ml) Ud) 3 ml INH RQ4 PRN PRN Reason: Shortness of Breath Benzocaine/Menthol (Dermoplast) 1 sprays TOP Q6 PRN PRN Reason: Perineal Discomfort Last Admin: 02/09/19 16:51 Dose: 1 sprays Docusate Sodium (Colace) 100 mg PO BID [facility] Last Admin: 02/09/19 18:24 Dose: Not Given Guaifenesin (Mucinex La) 600 mg PO Q12 [facility] Last Admin: 02/09/19 16:00 Dose: Not Given Azithromycin 500 mg/ Sodium (Chloride) 250 mls @ 250 mls/hr IVPB DAILY [facility]; Protocol Last Admin: 02/09/19 16:01 Dose: Not Given Ceftriaxone Sodium 1 gm/ (Sodium Chloride) 100 mls @ 100 mls/hr IVPB DAILY [facility]; Protocol Last Admin: 02/09/19 16:01 Dose: Not Given Ibuprofen (Motrin Tab) 600 mg PO Q6 PRN PRN Reason: Pain, Mild (1-3) Last Admin: 02/08/19 23:08 Dose: 600 mg Multivitamins/Minerals (Therapeutic-M Tab) 1 tab PO DAILY [facility] Last Admin: 02/09/19 08:47 Dose: 1 tab Oxycodone/Acetaminophen (Percocet 5/325 Mg Tab) 1 tab PO Q4 PRN PRN Reason: Pain, moderate (4-7) Stop: 02/10/19 16:13 Sennosides (Senokot Tab) 17.2 mg PO HS [facility] Last Admin: 02/08/19 21:26 Dose: Not Given - Labs Labs: 02/09/19 05:20 02/09/19 05:20 Attending/Attestation - Attestation I have personally seen and examined this patient.: Yes I have fully participated in the care of the patient.: Yes I have reviewed all pertinent clinical information, including history, physical exam and plan: Yes Notes (Text): Pneumonia prob bacterial Hypokalemia Pt received IV Ceftriaxone and Azithro - sxs improved - replaced K - when pt is discharged - d/c home on PO Omnicef and PO Azithro
[2019-02-09] MEDS: Sodium Chloride 3% for Inhalation 4 ML VIAL.NEB IH SCH ×2 (14:57→15:49)
[2019-02-09] MEDS: guaiFENesin 600 mg ER Tab PO SCH (16:00)
[2019-02-09] MEDS: Azithromycin 500 MG in Sodium Chloride 0.9% 250 ML IVPB SCH (16:01)
--- NOTE | 2019-02-09 16:08 | OBPPN ---
Datetime: 02/09/2019 15:52 PP Pain Prov: Within normal limits PP Nausea Prov: Denies PP Flatus Prov: Yes PP Breasts Prov: Normal PP Heart Prov: Normal PP Lungs Prov: Normal PP Abdomen/Uterus Prov: Normal PP Lochia Prov: Normal PP Vulva/Perineum Prov: Normal PP CVA Tenderness Prov: Normal PP Extremities Prov: Normal PP C/S Incision Prov: Not Applicable PP Progress Prov: Normal PP Comments Phys Exam Prov: Abd: Soft, NT, BS- present. UT- firm PP Impression Prov: Normal progression PP Plan Prov: Discharge PP Progress Note Prov: S/p Normal Spontaneous vaginal delivery, PPD 2 Clinically Stable. Plan: Discharge Vital Signs Provider PP: Reviewed
--- NOTE | 2019-02-09 16:08 | OBDCSUM ---
Datetime: 02/09/2019 10:23 Discharged to, Provider: Home Follow up at, Provider: OB Disch Instr Activity: Normal activity; May be up to bathroom; May be up for meals; May Shower Disch Instr Diet: Regular Discharge Instructions, Provider: Routine instructions given Discharge Diagnosis, Provider: Term Delivered Discharge Time: 02/09/2019 10:23 Follow up in weeks, Provider: 4-6 weeks Disch Referrals: None Contraception discussed, Prov: Yes Disch Activity Restrictions: Minimize stair-climbing; No sexual activity; Nothing in vagina - Interc ourse, tampons, douche Discharge Comment, Provider: S/P , Clinically Stable Discharge Diagnosis Prov Other: S/P , Clinically Stable
[2019-02-09] MEDS: Benzocaine/Menthol SPRAY TOP PRN (16:51)
[2019-02-10 02:57] VITALS: BP 127/79; PULSE 63; RESP 20; TEMP 97.8; O2SAT 100
--- NOTE | 2019-02-10 15:24 | OBPPN ---
Datetime: 02/08/2019 14:53 PP Pain Prov: Within normal limits PP Nausea Prov: Denies PP Flatus Prov: Yes PP Breasts Prov: Normal PP Heart Prov: Normal PP Lungs Prov: Normal PP Abdomen/Uterus Prov: Normal PP Lochia Prov: Normal PP Vulva/Perineum Prov: Normal PP CVA Tenderness Prov: Normal PP Extremities Prov: Normal PP Comments Phys Exam Prov: Abd: Soft, NT, BS - present UT- Firm PP Impression Prov: Normal progression PP Plan Prov: Continue present management PP Progress Note Prov: S/p , PPD #1 Clinically Stable. Plan: Continue care. Vital Signs Provider PP: Reviewed
== END 2019-02-09 10:23 | disposition home or self-care (01) | DRG 805 ==
LOC: H.EROB2 14:44 → H.L&D 15:43 → H.OB/GYN 02-07 20:38
PROVIDERS: ADMIT Obstetrics & Gynecology; ATTEND Obstetrics & Gynecology
PROC: 4A1HXCZ Monitoring of Products of Conception, Cardiac Rate, External Approach (ICD-10-PCS; 2019-02-05)
PROC: 0U7C7ZZ Dilation of Cervix, Via Natural or Artificial Opening (ICD-10-PCS; 2019-02-06)
PROC: 3E0P7VZ Introduction of Hormone into Female Reproductive, Via Natural or Artificial Opening (ICD-10-PCS; 2019-02-06)
PROC: 10E0XZZ Delivery of Products of Conception, External Approach (ICD-10-PCS; principal; 2019-02-07)
PROC: 3E0F7GC Introduction of Other Therapeutic Substance into Respiratory Tract, Via Natural or Artificial Opening (ICD-10-PCS; 2019-02-08)
DX: O36.5930 Maternal care for other known or suspected poor fetal growth, third trimester, not applicable or unspecified (principal); J15.9 Unspecified bacterial pneumonia; Z37.0 Single live birth; O76 Abnormality in fetal heart rate and rhythm complicating labor and delivery; O77.0 Labor and delivery complicated by meconium in amniotic fluid; O69.81X0 Labor and delivery complicated by cord around neck, without compression, not applicable or unspecified; O99.53 Diseases of the respiratory system complicating the puerperium; O90.89 Other complications of the puerperium, not elsewhere classified; E87.6 Hypokalemia; R07.89 Other chest pain; J32.9 Chronic sinusitis, unspecified; Z3A.38 38 weeks gestation of pregnancy; Z88.3 Allergy status to other anti-infective agents